=== PATIENT | female | born 1985 | race Caucasian/White ===

== ENCOUNTER → 2018-02-02 | Outpatient (CLI) | payer OTHER | END | disposition home or self-care (01) | LOC: LABWHC1 15:13 | PROVIDERS: ATTEND Obstetrics & Gynecology | DX: Z34.81 Encounter for supervision of other normal pregnancy, first trimester (principal) | CPT/HCPCS: 36415; 84702 ==

== ENCOUNTER 2018-06-12 17:30 | Emergency (ER) | payer OTHER ==
[2018-06-12 17:42] VITALS: RESP 18
[2018-06-12 18:04] LABS: Appearance,Urine Clear (Clear); Bilirubin,Urine Negative (Negative); Blood,Urine Negative (Negative); Color,Urine Yellow; Glucose,Urine (UA) Negative (Negative); Ketones,Urine Negative (Negative); Leukocyte Esterase,Urine Negative (Negative); Nitrite,Urine Negative (Negative); PH, Urine 6.5 (5.0-8.0); Protein,Urine Trace (Negative); Specific Gravity,Urine 1.026 (1.001-1.035)
[2018-06-12] MEDS ORDERED: KETOROLAC 30 MG/ML 1 ML VIAL IVP STA (18:16)
--- NOTE | 2018-06-12 19:02 | XR ---
EXAMINATION TYPE: XR chest 2V DATE OF EXAM: 06/12/2018 COMPARISON: NONE HISTORY: Fever. TECHNIQUE: Frontal and lateral views of the chest are obtained. FINDINGS: There is no focal air space opacity, pleural effusion, or pneumothorax seen. The cardiac silhouette size is within normal limits. The osseous structures are intact. Overlying bra strap not ed. IMPRESSION: No suspicious acute infiltrate.
[2018-06-12 19:23] LABS: Basophils # (A) 0.1 k/uL (0-0.2); Basophils % (A) 1 %; Eosinophils # (A) 0.2 k/uL (0-0.7); Eosinophils % (A) 2 %; HCT 46.7 % (34.0-46.0); HGB 14.6 gm/dL (11.4-16.0); Lymphocytes # (A) 3.2 k/uL (1.0-4.8); Lymphocytes % (A) 28 %; MCH 27.1 pg (25.0-35.0); MCHC 31.3 g/dL (31.0-37.0); MCV 86.4 fL (80.0-100.0); Monocytes # (A) 0.5 k/uL (0-1.0); Monocytes % (A) 4 %; Neutrophils # (A) 7.6 k/uL (1.3-7.7); Neutrophils % (A) 65 %; Platelet Count 317 k/uL (150-450); RDW 13.8 % (11.5-15.5); WBC 11.7 k/uL (3.8-10.6)
[2018-06-12 19:25] LABS: ALT 36 U/L (9-52); AST 17 U/L (14-36); Albumin 4.5 g/dL (3.5-5.0); Alkaline Phosphatase 82 U/L (38-126); Amylase 31 U/L (30-110); Anion Gap 9 mmol/L; Blood Urea Nitrogen 17 mg/dL (7-17); Calcium 10.2 mg/dL (8.4-10.2); Carbon Dioxide 25 mmol/L (22-30); Chloride 107 mmol/L (98-107); Glucose 92 mg/dL (74-99); Lipase 38 U/L (23-300); Sodium 141 mmol/L (137-145); Total Bilirubin 0.4 mg/dL (0.2-1.3); Total Protein 7.5 g/dL (6.3-8.2)
[2018-06-12 20:44] VITALS: BP 134/93; PULSE 64; TEMP 97.7
--- NOTE | 2018-06-12 20:55 | US ---
EXAMINATION TYPE: US abdomen limited DATE OF EXAM: 06/12/2018 COMPARISON: NONE CLINICAL HISTORY: Pain. RUQ pain x 3 weeks EXAM MEASUREMENTS: Liver Length: 18.7 cm Gallbladder Wall: 0.2 cm CBD: 0.5 cm Right Kidney: 11.0 x 5.5 x 4.7 cm Pancreas: Tail obscured by overlying bowel gas Liver: Increased attenuation Gallbladder: wnl Evidence for sonographic Parrish's sign: No CBD: wnl Right Kidney: wnl Visualized liver is heterogeneously hyperechoic suggesting mild diffuse fatty infiltration. IMPRESSION: No shadowing mobile gallstones or ultrasound evidence for acute cholecystitis. Suspect mi ld diffuse fatty infiltration of liver.
--- NOTE | 2018-06-12 21:22 | ED ---
General Adult HPI - General Chief complaint: Abdominal Pain Stated complaint: UTI Time Seen by Provider: 06/12/18 17:50 Source: patient, RN notes reviewed Mode of arrival: ambulatory Limitations: no limitations - History of Present Illness Initial comments: 33-year-old female presents to the emergency department for a chief complaint of right lateral lower rib pain and right upper quadrant pain. Patient states she had similar symptoms when she had a urinary tract infection quite some time ago. Patient denies any lower abdominal pain. Patient denies any dysuria. Denies fevers or chills. No nausea or vomiting. Patient states this pain has been on and off for the past week. She denies any chest pain or shortness of breath. Denies any pleuritic pain. Patient has no other complaints at this time including shortness of breath, chest pain,nausea or vomiting, headache, or visual changes. - Related Data Home Medications Medication Instructions Recorded Confirmed No Known Home Medications 06/12/18 06/12/18 Allergies Allergy/AdvReac Type Severity Reaction Status Date / Time No Known Allergies Allergy Verified 06/12/18 17:50 Review of Systems ROS Statement: Those systems with pertinent positive or pertinent negative responses have been documented in the HPI. ROS Other: All systems not noted in ROS Statement are negative. Past Medical History Past Medical History: No Reported History History of Any Multi-Drug Resistant Organisms: None Reported Past Surgical History: No Surgical Hx Reported Past Psychological History: Anxiety Smoking Status: Current every day smoker Past Alcohol Use History: Occasional Past Drug Use History: Marijuana General Exam Limitations: no limitations General appearance: alert, in no apparent distress Head exam: Present: atraumatic, normocephalic, normal inspection Eye exam: Present: normal appearance, PERRL, EOMI. Absent: scleral icterus, conjunctival injection, periorbital swelling ENT exam: Present: normal exam, mucous membranes moist Neck exam: Present: normal inspection, full ROM. Absent: tenderness, meningismus, lymphadenopathy Respiratory exam: Present: normal lung sounds bilaterally. Absent: respiratory distress, wheezes, rales, rhonchi, stridor Cardiovascular Exam: Present: regular rate, normal rhythm, normal heart sounds. Absent: systolic murmur, diastolic murmur, rubs, gallop, clicks GI/Abdominal exam: Present: soft, tenderness (Tenderness noted to the right upper quadrant, tenderness also noted to the right lower lateral ribs. no signficant tenderness noted to epigastric or left upper quadrant.), normal bowel sounds. Absent: distended, guarding (No guarding present.), rebound, rigid Back exam: Present: normal inspection. Absent: CVA tenderness (R), CVA tenderness (L), vertebral tenderness Neurological exam: Present: alert, oriented X3, CN II-XII intact Psychiatric exam: Present: normal affect, normal mood Course Vital Signs 06/12/18 06/12/18 17:38 20:42 Temperature 98.3 F 97.7 F Pulse Rate 76 64 Respiratory 18 18 Rate Blood Pressure 147/95 134/93 O2 Sat by Pulse 98 97 Oximetry Medical Decision Making - Medical Decision Making 33-year-old female presents to the emergency department for a chief complaint of right lower rib and right upper quadrant pain. Denies any lower abdominal pain or left-sided pain despite triage note. Patient states this has been going on for about a week. She states pain is intermittent. Not sure and alleviating or aggravating factors. Exam does show right upper quadrant tenderness as well as right-sided rib tenderness. No chest pain or shortness of breath.CBC and CMP are unremarkable. Amylase and lipase are within normal limits. Urine is negative. Given rib tenderness chest x-ray was ordered which showed no suspicious acute infiltrate. Ultrasound of the right upper quadrant showed no shadowing mobile gallstones or evidence for cholecystitis. There is mild diffuse fatty liver. On reevaluation of the patient she is up ambulating around the room and dressed trying to take out her IV. She states she is feeling much better and has to be to work by 945 pm. I did offer further workup of patient states she would rather follow up outpatient. She was given GI referral as well as primary care. However I did discuss to return here immediately if she has worsening symptoms. - Lab Data Result diagrams: 06/12/18 19:00 06/12/18 19:00 Lab Results 06/12/18 06/12/18 06/12/18 Range/Units 17:54 17:54 19:00 WBC (3.8-10.6) k/uL RBC (3.80-5.40) m/uL Hgb (11.4-16.0) gm/dL Hct (34.0-46.0) % MCV (80.0-100.0) fL MCH (25.0-35.0) pg MCHC (31.0-37.0) g/dL RDW (11.5-15.5) % Plt Count (150-450) k/uL Neutrophils % % Lymphocytes % % Monocytes % % Eosinophils % % Basophils % % Neutrophils # (1.3-7.7) k/uL Lymphocytes # (1.0-4.8) k/uL Monocytes # (0-1.0) k/uL Eosinophils # (0-0.7) k/uL Basophils # (0-0.2) k/uL Sodium 141 (137-145) mmol/L Potassium 4.0 (3.5-5.1) mmol/L Chloride 107 (98-107) mmol/L Carbon Dioxide 25 (22-30) mmol/L Anion Gap 9 mmol/L BUN 17 (7-17) mg/dL Creatinine 0.79 (0.52-1.04) mg/dL Est GFR (CKD-EPI)AfAm >90 (>60 ml/min/1.73 sqM) Est GFR (CKD-EPI)NonAf >90 (>60 ml/min/1.73 sqM) Glucose 92 (74-99) mg/dL Calcium 10.2 (8.4-10.2) mg/dL Total Bilirubin 0.4 (0.2-1.3) mg/dL AST 17 (14-36) U/L ALT 36 (9-52) U/L Alkaline Phosphatase 82 (38-126) U/L Total Protein 7.5 (6.3-8.2) g/dL Albumin 4.5 (3.5-5.0) g/dL Amylase 31 (30-110) U/L Lipase 38 (23-300) U/L Urine Color Yellow Urine Appearance Clear (Clear) Urine pH 6.5 (5.0-8.0) Ur Specific [place] 1.026 (1.001-1.035) Urine Protein Trace H (Negative) Urine Glucose (UA) Negative (Negative) Urine Ketones Negative (Negative) Urine Blood Negative (Negative) Urine Nitrite Negative (Negative) Urine Bilirubin Negative (Negative) Urine Urobilinogen 3.0 (<2.0) mg/dL Ur Leukocyte Esterase Negative (Negative) Urine HCG, Qual Not Detected (Not Detectd) 06/12/18 Range/Units 19:00 WBC 11.7 H (3.8-10.6) k/uL RBC 5.40 (3.80-5.40) m/uL Hgb 14.6 (11.4-16.0) gm/dL Hct 46.7 H (34.0-46.0) % MCV 86.4 (80.0-100.0) fL MCH 27.1 (25.0-35.0) pg MCHC 31.3 (31.0-37.0) g/dL RDW 13.8 (11.5-15.5) % Plt Count 317 (150-450) k/uL Neutrophils % 65 % Lymphocytes % 28 % Monocytes % 4 % Eosinophils % 2 % Basophils % 1 % Neutrophils # 7.6 (1.3-7.7) k/uL Lymphocytes # 3.2 (1.0-4.8) k/uL Monocytes # 0.5 (0-1.0) k/uL Eosinophils # 0.2 (0-0.7) k/uL Basophils # 0.1 (0-0.2) k/uL Sodium (137-145) mmol/L Potassium (3.5-5.1) mmol/L Chloride (98-107) mmol/L Carbon Dioxide (22-30) mmol/L Anion Gap mmol/L BUN (7-17) mg/dL Creatinine (0.52-1.04) mg/dL Est GFR (CKD-EPI)AfAm (>60 ml/min/1.73 sqM) Est GFR (CKD-EPI)NonAf (>60 ml/min/1.73 sqM) Glucose (74-99) mg/dL Calcium (8.4-10.2) mg/dL Total Bilirubin (0.2-1.3) mg/dL AST (14-36) U/L ALT (9-52) U/L Alkaline Phosphatase (38-126) U/L Total Protein (6.3-8.2) g/dL Albumin (3.5-5.0) g/dL Amylase (30-110) U/L Lipase (23-300) U/L Urine Color Urine Appearance (Clear) Urine pH (5.0-8.0) Ur Specific [place] (1.001-1.035) Urine Protein (Negative) Urine Glucose (UA) (Negative) Urine Ketones (Negative) Urine Blood (Negative) Urine Nitrite (Negative) Urine Bilirubin (Negative) Urine Urobilinogen (<2.0) mg/dL Ur Leukocyte Esterase (Negative) Urine HCG, Qual (Not Detectd) Disposition Clinical Impression: Abdominal pain Disposition: HOME SELF-CARE Condition: Good Instructions (If sedation given, give patient instructions): Abdominal Pain (ED ) Additional Instructions: Please follow up with primary care and GI in 1-2 days. Please return here to the emergency department if you have any worsening symptoms. Is patient prescribed a controlled substance at d/c from ED?: No Referrals: Ivelisse Kebede MD [Primary Care Provider] - 1-2 days Kanu Waterman MD [STAFF PHYSICIAN] - 1-2 days Time of Disposition: 21:21
== END 2018-06-12 21:30 | disposition home or self-care (01) ==
LOC: EC 17:30
DX: R10.11 Right upper quadrant pain (principal); K76.0 Fatty (change of) liver, not elsewhere classified; R07.81 Pleurodynia; F17.200 Nicotine dependence, unspecified, uncomplicated; Z87.440 Personal history of urinary (tract) infections
CPT/HCPCS: 36415; 80053; 82150; 83690; 85025; 81003; 81025; 71046; 76705; 99284; 96374; J1885

== ENCOUNTER 2020-06-26 16:09 | Inpatient (IN) | payer OTHER ==
[2020-06-26] MEDS ORDERED: LIDOCAINE 0.5% (PF) 5 MG/ML (50 ML SDV) SQ PRN (17:37)
[2020-06-26] MEDS ORDERED: OXYTOCIN 10 UNIT/ML 1 ML VIAL IM PRN (17:37)
[2020-06-26] MEDS ORDERED: METHYLERGONOVINE 0.2 MG/ML 1 ML AMP IM PRN (17:37)
[2020-06-26] MEDS ORDERED: TERBUTALINE 1 MG/ML VIAL SQ PRN (17:37)
[2020-06-26] MEDS ORDERED: CARBOPROST TROMETHAMINE 250 MCG/ML 1 ML AMP IM PRN (17:37)
[2020-06-26] MEDS ORDERED: AMPICILLIN 2,000 MG in SODIUM CHLORIDE 0.9% 100 ML IVPB STA (17:42)
[2020-06-26] MEDS ORDERED: OXYTOCIN 30 UNITS/500 ML NS 30 UNIT in SALINE 1 500ML.BAG IV SCH (17:45)
--- NOTE | 2020-06-26 17:52 | P.HPOB ---
History of Present Illness H&P Date: 06/26/20 Chief Complaint: IUP at 40 and 0, spontaneous rupture of membranes This is a 35-year-old at 40-0/7 weeks with an estimated due date of 06/26 E. on last menstrual period and consistent with 12 week ultrasound. Patient presents with complaints of spontaneous rupture of membranes around 11 AM this morning. Patient denies concerns of contractions or vaginal bleeding. Patient has been receiving routine care. Patient's care has been complicated by gestational hypertension for which she is on labetalol 100 mg twice daily. Patient is noted to be group beta strep positive. On bloodwork patient has a blood type of O+, rubella status is immune, RPR is nonreactive, hep Aide surface antigen is negative, HIV negative. Patient did pass her 1 hour gestational diabetes screen with a result of 112. Group beta strep culture was positive on 06/05. Review of Systems Constitutional: Denies fatigue, Denies fever Ears, nose, mouth and throat: Denies headache Cardiovascular: Reports leg edema Respiratory: Denies dyspnea Gastrointestinal: Denies nausea, Denies vomiting Genitourinary: Reports Past Medical History Past Medical History: No Reported History History of Any Multi-Drug Resistant Organisms: None Reported Past Surgical History: No Surgical Hx Reported Past Psychological History: Anxiety Past Alcohol Use History: Occasional Past Drug Use History: Marijuana Medications and Allergies Home Medications Medication Instructions Recorded Confirmed Type No Known Home Medications 06/12/18 06/12/18 History Allergies Allergy/AdvReac Type Severity Reaction Status Date / Time No Known Allergies Allergy Verified 06/12/18 17:50 Exam Osteopathic Statement: *. No significant issues noted on an osteopathic structural exam other than those noted in the History and Physical/Consult. 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 heart tones returned be category 1 and she is not chava. Assessment and Plan (1) Term Current Visit: Yes Status: Acute Code(s): Z34.90 - ENCNTR FOR SUPRVSN OF NORMAL , UNSP, UNSP TRIMESTER SNOMED Code(s): 77552597 (2) SROM (spontaneous rupture of membranes) Current Visit: Yes Status: Acute Code(s): CJA4762 - SNOMED Code(s): 642598683 (3) Positive GBS test Current Visit: Yes Status: Acute Code(s): B95.1 - STREPTOCOCCUS, GROUP B, [facility] Code(s): 850886342 Plan: This 35-year-old at 40-0/7 weeks presents to labor and delivery with complaints of spontaneous rupture of membranes around 11 AM this morning. Patient is admitted to labor and delivery and IV antibiotics are begun. Pitocin augmentation of labor will be initiated given length of time since rupture of membranes. Epidural versus Stadol are discussed and reviewed with patient.
[2020-06-26] MEDS ORDERED: BUTORPHANOL 1 MG/ML 1 ML VIAL IV PRN (18:10)
[2020-06-26] MEDS: LACTATED RINGERS 1,000 ML IV SCH ×2 (18:21→19:15)
[2020-06-26 18:48] LABS: Basophils # (A) 0.1 k/uL (0-0.2); Basophils % (A) 1 %; Eosinophils # (A) 0.2 k/uL (0-0.7); Eosinophils % (A) 1 %; HCT 38.5 % (34.0-46.0); HGB 13.2 gm/dL (11.4-16.0); Lymphocytes # (A) 2.2 k/uL (1.0-4.8); Lymphocytes % (A) 14 %; MCH 29.4 pg (25.0-35.0); MCHC 34.2 g/dL (31.0-37.0); MCV 85.8 fL (80.0-100.0); Monocytes # (A) 0.6 k/uL (0-1.0); Monocytes % (A) 4 %; Neutrophils # (A) 12.3 k/uL (1.3-7.7); Neutrophils % (A) 80 %; Platelet Count 269 k/uL (150-450); RBC 4.49 m/uL (3.80-5.40); RDW 13.5 % (11.5-15.5); WBC 15.4 k/uL (3.8-10.6)
[2020-06-26] MEDS: AMPICILLIN 1,000 MG in SODIUM CHLORIDE 0.9% 50 ML IVPB SCH (22:00)
[2020-06-27] MEDS: AMPICILLIN 1,000 MG in SODIUM CHLORIDE 0.9% 50 ML IVPB SCH ×4 (01:53→14:00)
[2020-06-27] MEDS: LACTATED RINGERS 1,000 ML IV SCH ×3 (03:36→08:11)
[2020-06-27] MEDS ORDERED: fentaNYL (PF) 50 MCG/ML 5 ML AMP ONE ×2 (04:34→12:35)
[2020-06-27] MEDS ORDERED: ROPIVACAINE 5MG/ML 20ML VIAL ONE ×2 (04:34→12:35)
[2020-06-27] MEDS ORDERED: SODIUM CHLORIDE 0.9% 100 ML BAG ONE ×2 (04:34→12:35)
[2020-06-27] MEDS ORDERED: ONDANSETRON 4 MG/2 ML VIAL IVP PRN ×2 (10:26→13:24)
[2020-06-27] MEDS ORDERED: OXYTOCIN 10 UNIT/ML 1 ML VIAL ONE (12:35)
[2020-06-27] MEDS ORDERED: MORPHINE SULFATE (PF) 0.3 MG/0.3 ML SYR ONE (12:35)
[2020-06-27] MEDS ORDERED: KETOROLAC 15 MG/ML 1 ML VIAL ONE (12:35)
[2020-06-27] MEDS ORDERED: ONDANSETRON 4 MG/2 ML VIAL ONE (12:35)
[2020-06-27] MEDS ORDERED: ceFAZolin 3 GM in SODIUM CHLORIDE 0.9% 100 ML IVPB ONE (12:42)
[2020-06-27] MEDS ORDERED: CITRIC ACID-SODIUM CITRATE 15 ML CUP PO ONE (13:00)
[2020-06-27] MEDS ORDERED: diphenhydrAMINE 50 MG/ML 1 ML VIAL IVP PRN ×3 (13:11→13:24)
[2020-06-27] MEDS ORDERED: NALOXONE 0.4 MG/ML 1 ML VIAL IV PRN (13:11)
[2020-06-27] MEDS ORDERED: MORPHINE SULFATE 2 MG/ML SYRINGE IVP PRN (13:11)
[2020-06-27] MEDS ORDERED: METOCLOPRAMIDE 5 MG/ML 2 ML VIAL IVP PRN (13:24)
[2020-06-27] MEDS ORDERED: KETOROLAC 15 MG/ML 1 ML VIAL IVP PRN (13:24)
[2020-06-27] MEDS ORDERED: diphenhydrAMINE 50 MG CAP PO PRN (13:24)
[2020-06-27] MEDS ORDERED: SIMETHICONE 80 MG CHEWABLE PO PRN (13:24)
[2020-06-27] MEDS ORDERED: diphenhydrAMINE 25 MG CAP PO PRN (13:24)
[2020-06-27] MEDS ORDERED: LANOLIN CREAM 5 GM TUBE TOPICAL PRN (13:24)
[2020-06-27] MEDS ORDERED: ZOLPIDEM 5 MG TAB PO PRN (13:24)
[2020-06-27] MEDS ORDERED: HYDROcodone/APAP 5-325MG 1 EACH TAB PO PRN (13:28)
[2020-06-27] MEDS ORDERED: OXYTOCIN 30 UNITS/500 ML NS 30 UNIT in SALINE 1 500ML.BAG IV SCH (13:30)
[2020-06-27] MEDS ORDERED: LACTATED RINGERS 1,000 ML IV SCH (13:30)
--- NOTE | 2020-06-27 13:36 | P.OP ---
Date of Procedure: 06/27/20 Preoperative Diagnosis: #1. 40-0/7 weeks, labor #2. Arrest of dilation and descent #3. Suspected malposition #4. intolerance of labor Postoperative Diagnosis: Same Procedure(s) Performed: #1. Primary low-transverse section Anesthesia: epidural Surgeon: Sriram Nogueira [employer] Vault Custodian #1: Lo Wilkins Estimated Blood Loss (ml): 500 IV fluids (ml): 800 Urine output (ml): 100 Pathology: none sent Condition: stable Disposition: floor Operative Findings: The patient had had spontaneous rupture for more than 24 hours. Antibody prophylaxis had been in place since presentation. heart tones with demonstrate repetitive late decelerations with any degree of increasing of the Pitocin. Maternal cervical exam was found to be approximately 5 cm early this morning with the station at approximately -2 station and never changed through the entire morning despite contractions though the Pitocin did have to be turned off on several occasions. Exam also indicated that the fetus was likely to be in an occiput posterior position. This was ultimately confirmed intraoperatively. As result of all of the above, the patient was counseled and taken to the operating room where she was delivered by primary low-transverse section of a viable 7 lbs. 11 oz. baby boy with Apgars of 8 at 1 minute and 9 at 5 minutes in the occiput posterior position. There was a loose nuchal cord 1. The placenta was delivered manually, intact, and grossly normal with a grossly normal three-vessel cord. Uterus, tubes, and ovaries were entirely normal to inspection. Description of Procedure: The patient was prepped and draped in usual fashion after epidural anesthesia was bolused by the anesthesiologist. A Pfannenstiel incision was made and extended into the abdominal cavity without difficulty. The bladder peritoneum was significantly distal to the intended site of incision was left intact. A 27 incision was made in the transverse plane of the lower uterine segment to enter the uterus at which time some globular meconium was noted but mostly with clear fluid. The incision was extended in both directions using the bandage scissors. The head was of not significantly deep in the pelvis and was found to be in the left occiput posterior position. The head was elevated up and through the incision where the nose and mouth were thoroughly suctioned. The remainder of the infant was delivered onto the field after reducing the loose nuchal cord. The cord was doubly clamped, cut, and the passed resuscitative measures with weight and Apgars as noted above. A segment of cord was doubly clamped, cut, and set aside should cord gases become necessary. The placenta was delivered manually and intact as noted above. The uterus was exteriorized and the interior cavity of uterus swept of any remaining placental or membranous fragments. The margins of the uterine incision were grasped with Keenan clamps and the incision closed in 2 layers. The first layer was a running locking stitch of 0 chromic catgut from margin to margin followed by a running imbricating layer of 0 chromic catgut from margin to margin. Hemostasis appeare d to be excellent. The posterior cul-de-sac was then suctioned with a guard as well as with a laparotomy sponge. The uterus was replaced within the abdominal cavity and the gutters swept of any remaining blood, fluid, or clot. The incision was reexamined and found to be hemostatic. After ensuring hemostasis, the parietal peritoneum was loosely reapproximated and layer of muscles examined and found to be hemostatic. The fascia was closed with 2 running stitches of 0 Vicryl proceeding from lateral margins to midpoint. The subcutaneous tissues were irrigated, made hemostatic with the Bovie, and reapproximated with a running stitch of 30 plain catgut. The skin was approximated with a running subcuticular stitch of 4-0 Vicryl from margin to margin followed by half-inch Steri-Strips placed with Mastisol. Estimated blood loss for the case was approximate 500 mL. There were no complications. All sponge, instrument, and needle counts were correct. The patient tolerated the procedure well and proceeded to the recovery room in stable condition. Both mother and infant are resting comfortably in recovery.
--- NOTE | 2020-06-27 14:04 | P.PN ---
Subjective Progress Note Date: 06/27/20 Principal diagnosis: Status post section, acute onset left upper extremity weakness The patient is approximately 30 minutes status post section and began complaining of left upper extremity weakness and lack of sensation. She appears to have intact neurologic of function in her other extremities and there is no evidence of any facial changes. Right side is completely unaffected. Objective - Vital Signs Vital signs: Vital Signs Temp 97.2 F L 06/27/20 13:25 Pulse 74 06/27/20 13:25 Resp 18 06/27/20 13:25 BP 97/56 06/27/20 13:25 Pulse Ox 95 06/27/20 13:25 Intake & Output 06/26/20 06/27/20 06/27/20 18:59 06:59 18:59 Weight 148.325 kg Other: # Voids 1 - Exam [place] examination demonstrates her facial expressions to be equal bilaterally with normal sensation. Her left upper extremity does demonstrate lack of sensation from the shoulder to the hand as well as generalized weakness including the inability to hold it up or 2 close her hand with any level of power. Left lower extremity has normal sensation and appears to have normal range of motion. - Labs CBC & Chem 7: 06/26/20 17:45 Labs: Abnormal Lab Results - Last 24 Hours (Table) 06/26/20 Range/Units 17:45 WBC 15.4 H (3.8-10.6) k/uL Neutrophils # 12.3 H (1.3-7.7) k/uL Assessment and Plan (1) Weakness of left upper extremity Current Visit: Yes Status: Acute Code(s): R29.898 - OT SYMPTOMS AND SIGNS INVOLVING THE MUSCULOSKELETAL SYSTEM SNOMED Code(s): 038010417 (2) S/P section Current Visit: Yes Status: Acute Code(s): Z98.891 - HISTORY OF UTERINE SCAR FROM PREVIOUS SURGERY SNOMED Code(s): 792766708 Plan: Initial thought was to call for neurology but given the occasional unavailability of neurology, discussed the case with the emergency room physician Dr. Vergara. He recommended that a "code stroke" be called to initiate acute care. The stroke team has arrived and has begun its initial evaluation. I will additionally consult sound physicians for ongoing medical management and almost certainly seek a neurology consult as it has been reported that they are available in the hospital today.
[2020-06-27 14:07] LABS: Glucose,Whole Blood 85 mg/dL (75-99)
--- NOTE | 2020-06-27 14:54 | CT ---
EXAMINATION TYPE: CODE STROKE: CT brain wo contr DATE OF EXAM: 06/27/2020 COMPARISON: 04/26/2015 INDICATION: cva, left sided weakness post DLP: 1072.3 mGycm, Automated exposure control for dose reduction was used. CONTRAST: None CT of the brain is performed utilizing 3 mm thick sections through the posterior fossa and 3 mm thick sections through the remaining calvarium. Study is performed within 24 hours of arrival to the hosp ital. No abnormal hyperdensity is present to suggest an acute intracranial hemorrhage. No mass lesion is evident. No acute infarcts are evident. Ventricles and sulci are appropriate for the patient age. Paranasal sinuses and mastoid air cells within the [id number] are clear. IMPRESSIONS: 1. Normal CT Brain 2. No acute infarct
[2020-06-27] MEDS ORDERED: ASPIRIN 325 MG TAB PO SCH (15:00)
[2020-06-27 15:25] LABS: INR 0.9 (<1.2); Partial Thromboplastin Time 22.7 sec (22.0-30.0); Prothrombin Time 9.7 sec (9.0-12.0)
[2020-06-27 15:26] LABS: ALT 14 U/L (4-34); AST 16 U/L (14-36); African American GFR (CKD) >90 (>60 ml/min/1.73 sqM); Alkaline Phosphatase 132 U/L (38-126); Anion Gap 6 mmol/L; Basophils % (A) 0 %; Blood Urea Nitrogen 11 mg/dL (7-17); Calcium 8.4 mg/dL (8.4-10.2); Carbon Dioxide 24 mmol/L (22-30); Chloride 103 mmol/L (98-107); Eosinophils # (A) 0.1 k/uL (0-0.7); Eosinophils % (A) 1 %; Glucose 90 mg/dL (74-99); HCT 34.1 % (34.0-46.0); HGB 11.3 gm/dL (11.4-16.0); Lymphocytes # (A) 1.5 k/uL (1.0-4.8); Lymphocytes % (A) 9 %; MCH 28.2 pg (25.0-35.0); MCHC 33.1 g/dL (31.0-37.0); Monocytes # (A) 0.5 k/uL (0-1.0); Monocytes % (A) 3 %; Neutrophils # (A) 14.9 k/uL (1.3-7.7); Neutrophils % (A) 87 %; Non-African American GFR(CKD) >90 (>60 ml/min/1.73 sqM); Platelet Count 228 k/uL (150-450); Potassium 4.2 mmol/L (3.5-5.1); RBC 4.01 m/uL (3.80-5.40); RDW 13.8 % (11.5-15.5); Sodium 133 mmol/L (137-145); Total Bilirubin 0.4 mg/dL (0.2-1.3); Total Protein 5.6 g/dL (6.3-8.2); WBC 17.2 k/uL (3.8-10.6)
--- NOTE | 2020-06-27 15:26 | P.CNNES ---
History of Present Illness Consult date: 06/27/20 Requesting physician: Jeanne Grace Reason for Consult: stroke code for left arm weakness History of Present Illness: This is a 35-year-old woman that is GP3 that had today on 06/27/2020 and completed at around 12:45pm but upon checking-up on the patient at around 1:25pm she was found to have left arm weakness. Stroke code was activated for left arm weakness. Per the OB team the surgery lasted for about 40 12:55 hour. She had an epidural in her lower back. Per the primary team the NIH stroke scale was 2 for arm weakness. Upon asking the team if she had any drift for her weakness they stated no so I did date NIH of a 2 I felt maybe she probably had NIH of 50 since she didn't have any drift but had the predominantly left hand weakness. Upon speaking to the patient and she stated that the she felt her upper extremity was weak with shoulder weakness and numbness. But denied any neck pain, shoulder pain any headache any nausea any vomiting any visual disturbance any difficulty getting her words out. Upon seeing the patient and her room her symptoms resolved and she feels back to baseline. Per Dr. Nogueira (heddler that performed her ) he mentioned to the patient is on labetalol for gestational hypertension. Patient denies any other medical problems besides gestational hypertension. She stated that she had that 2 previous pregnancies and she had two miscarriages. He denies any history of clots, strokes or TIAs in the past. Denies history of diabetes. She does smoke about half a pack a day for years. She denies any illicit drug use or alcohol use. Stroke team notified the primary team that she is not a tpa candidate since patient has recent surgery. CT head is reported as normal CT brain. No acute infarct. CT of the head and neck is ordered and is pending report Review of Systems Review of system: The 12 point system was reviewed and apparent positive and negative per HPI. Past Medical History Past Medical History: No Reported History History of Any Multi-Drug Resistant Organisms: None Reported Past Surgical History: No Surgical Hx Reported Past Anesthesia/Blood Transfusion Reactions: No Reported Reaction Past Psychological History: Anxiety Past Alcohol Use History: Occasional Past Drug Use History: Marijuana - Past Family History Mother Family Medical History: No Reported History Medications and Allergies Home Medications Medication Instructions Recorded Confirmed Type No Known Home Medications 06/12/18 06/12/18 History Allergies Allergy/AdvReac Type Severity Reaction Status Date / Time No Known Allergies Allergy Verified 06/12/18 17:50 Physical Examination - Vital Signs Vital Signs: Vital Signs Temp Pulse Resp BP Pulse Ox 06/27/20 13:25 97.2 F L 74 18 97/56 95 06/26/20 17:36 98.1 F 72 16 126/62 Intake and Output 06/26/20 06/27/20 06/27/20 22:59 06:59 14:59 Other: # Voids 2 1 Weight 148.325 kg GENERAL: The patient is lying in bed and is not in acute distress. CHEST: The heart rate is regular rate rhythm. No murmurs to auscultation. No carotid bruit bilaterally. LUNG: Clear to auscultation bilaterally no wheezing noted throughout. Not labored breathing. ABDOMEN/GI: Bowel sounds present in all 4 quadrants. No tenderness to palpation throughout. NEUROLOGICAL: Higher mental function: The patient is awake, alert, oriented to self, place and time. Patient is following commands. No aphasia and no neglect. Cranial nerves: The pupils are round, equal and reactive to light and acco mmodation. Visual shipman are full to confrontation throughout. Extraocular movement is intact no nystagmus is noted. Facial sensation is normal to touch throughout. The facial strength is normal throughout. Hearing is normal bilaterally to hand rub. Tongue is midline and moved [id number] without any difficulty. No dysarthria is noted. Shoulder shrug is normal bilaterally. Motor: Gait is deferred. The strength is 5 over 5 throughout uppers and at least 4+ in bilateral lower without folcality and limited because of recent surgery. Normal tone and bulk. Cerebellum: Normal finger to nose heel to mcguire bilaterally. Sensation: Sensation is normal to touch throughout. Reflexes (right/left):2+ throughout Plantars are downgoing bilaterally. Results - Laboratory Findings CBC and BMP: 06/27/20 15:02 06/27/20 15:02 Abnormal Lab Findings: Abnormal Labs 06/26/20 17:45 WBC 15.4 H Neutrophils # 12.3 H Assessment and Plan Assessment: This is a 35-year-old woman GP3 that had today on 06/27/2020 then had left upper extremity weakness (predominately hand/forearm) and numbness. It was felt she had ?NIH 2(left upper extremity. But had not drift that is why I question it). Her symptoms are resolved. Her transient left upper extremity weakness and numbness: One of the possibility is transient ischemic stroke another possibility is compression/position during the srugery causing it to feel weak. Recent delivery via and had epidural 2 prior miscarriages Tobacco use smokes half a pack a day for more than 10 years History of gestational hypertension Morbid obesity Plan: CT head is reported as normal CT brain. No acute infarct. CTA of the head and neck: It is reported as no flow limiting stenosis bilateral carotid bifurcation. Normal [place] of [place]. I ordered MRI of the brain stat I lowered the aspirin from 325 that was ordered by the primary team to 81mg. S he was currently started on 80 mg daily or secondary stroke prophylaxis. 2D echo, lipid panel are ordered and pending PT, OT and RADIOLOGY TRANSPORTER are consulted. Ordered Every 4 hours neuro checks. Ordered that continuous telemetry monitoring. Patient was counseled on tobacco cessation We'll defer the rest of the management to her heddler/primary team. The plan was discussed with the primary team as well as the patient's nurse. Thank you for the consultation. Clifton Crews MD Time with Patient: Greater than 30
--- NOTE | 2020-06-27 15:42 | CT ---
EXAMINATION TYPE: CODE STROKE: CTA head neck DATE OF EXAM: 06/27/2020 HISTORY: COMPARISON: None CT DLP: 491.5 mGycm. Automated Exposure Control for Dose Reduction was Utilized. TECHNIQUE: CTA scan of the neck is performed with IV Contrast, patient injected with 65 mL of Isovue 370, axial images are obtained, coronal and sagittal reformatted images are reviewed. Three-D recons tructed images are created on an independent workstation and reviewed. Source images are reviewed. FINDINGS: Carotid/Vascular Structures: Carotid arteries bifurcate normally into internal and external carotid a rteries. No significant narrowing is evident. 3-D reconstructed images are reviewed on the computer. Cervical of Jacobson: Vertebral basilar system appears normal. Posterior cerebral vasculature is unrema rkable. Internal carotid arteries bifurcate normally into A1 and M1 segments. A2 segments are normal. The anterior communicating artery is patent. Left Posterior communicating artery is patent. Right po sterior communicating artery is patent. IMPRESSION: 1. No flow-limiting stenosis bilateral carotid bifurcations. 2. Normal kaw of Jacobson
[2020-06-27 15:55] LABS: Creatine Kinase 77 U/L (30-135)
[2020-06-27] MEDS ORDERED: AMPICILLIN 1,000 MG in SODIUM CHLORIDE 0.9% 50 ML IVPB SCH (16:00)
[2020-06-27 16:07] LABS: Creatine Kinase MB 0.8 ng/mL (0.0-2.4); Troponin I <0.012 ng/mL (0.000-0.034)
[2020-06-27] MEDS ORDERED: LABETALOL 5 MG/ML VIAL MDV IVP PRN (17:06)
--- NOTE | 2020-06-27 17:15 | P.EN ---
Code Stroke: Indication: Left arm weakness and numbness, last known normal 1325. Background: Patient is a 35-year-old female with a history of obesity with BMI 51.2 and gestational hypertension currently taking labetalol 100 mg twice daily who initially presented with rupture of membranes. She had an epidural placed with lidocaine and fentanyl. She underwent . Upon moving to recovery from nursing noted significant left upper extremity weakness. Dr. Nogueira was notified. Code stroke was activated. Arrived to room at 1352. Patient is awake, alert, and talking. She reports left upper extremity weakness. Nursing has already performed an NIH stroke scale and given 2. Blood sugar was noted to be 85. Blood pressure was approximately 90/50. Patient seen and examined at bedside. She denies any headache, nausea, vomiting, abdominal pain, or back pain. She denies any double vision, blurry vision, loss of vision. She denies any difficulty speaking. Vital signs reviewed General: non toxic, no distress, appears at stated age Derm: warm, dry Head: atraumatic, normocephalic, symmetric Eyes: EOMI, no lid lag, anicteric sclera Mouth: no lip lesion, mucus membranes moist Cardiovascular: S1S2 reg, no murmur, positive posterior tibial pulse bilateral, Lungs: Decreased bs bilateral, no rhonchi, no rales , no accessory muscle use Neuro: Pupils equal round reactive to light, light touch intact bilateral face, no lid lag, extraocular motion intact, uvula elevation equal bilaterally, no tongue deviation Light touch intact bilateral shoulders, elbows, wrists, and hand. Light touch intact of bilateral thigh, calf, and feet. Muscle strength 5 out of 5 in bilateral lower extremities with flexion and extension at the thigh/hip/ankle Muscle strength 5 out of 5 in the right upper extremity with abduction and abduction, supination and pronation, flexion and extension at the elbow, and approximation of fingers to thumb Muscle strength 4 out of 5 in the left upper extremity with abduction and abduction, supination and pronation, flexion and extension at the elbow, Unable to resist breaking first to second finger [place], difficult maintaining finger positioning to resistence. Decreased fixture relamper strength on the left Psych: Alert, oriented, appropriate affect Assessment/Plan: 1. left upper extremity weakness - Concerns for TIA/CVA/ Hemorrhagic CVA/ Compression of cervical nerve - Stat CT head, and CTA head and neck - D/W Dr. Samuel of intervenational neuro. Not a candidate for TPA, could possibly be candidate for thrombectomy if indicated - D/W Dr. Nogueira - D/W Dr. Georgette Crews neuro hospitalist - Check stat cbc, cmp - check ekg - transfer from [facility] to for neuro checks and possible stroke care - hold labeatolol, for permissive hypertension - Monitor closely -significant other at bedside and update A Total of 32 minutes of critical care time was spent on the complex care of this patient. For recheck exam see consult note same date.
[2020-06-27] MEDS: ACETAMINOPHEN TAB 500 MG TAB PO SCH ×2 (17:42→23:19)
--- NOTE | 2020-06-27 18:00 | ECHOF ---
Referral Reason:Thrombus MEASUREMENTS -------- HEIGHT: 170.2 cm WEIGHT: 148.3 kg BP: RVIDd: 3.4 cm (< 3.3) IVSd: 1.1 cm (0.6 - 1.1) LVIDd: 4.8 cm (3.9 - 5.3) LVPWd: 1.2 cm (0.6 - 1.1) IVSs: 1.7 cm LVIDs: 3.3 cm LVPWs: 1.6 cm LA Diam: 3.4 cm (2.7 - 3.8) Ao Diam: 3.3 cm (2.0 - 3.7) AV Cusp: 2.6 cm (1.5 - 2.6) MV EXCURSION: 15.293 mm (> 18.000) MV EF SLOPE: 105 mm/s (70 - 150) EPSS: 0.8 cm MV E Smith: 1.46 m/s MV DecT: 218 ms MV A Smith: 0.78 m/s MV E/A Ratio: 1.87 RAP: 5.00 mmHg RVSP: 21.74 mmHg FINDINGS -------- Sinus rhythm. This was a technically good study. The left ventricular size is normal. There is borderline concentric left ventricular hypertrophy. Overall left ventricular systolic function is normal with, an EF between 60 - 65 %. The right ventricle is mildly enlarged. The left atrium is normal in size. The right atrium is normal in size. Interatrial and interventricular septum intact. The aortic valve is trileaflet and appears structurally normal. Mild mitral regurgitation is present. Mild tricuspid regurgitation present. Right ventricular systolic pressure is normal at < 35 mmHg. The aortic root size is normal. Normal inferior vena cava with normal inspiratory collapse consistent with estimated right atrial pre ssure of 5 mmHg. There is no pericardial effusion. CONCLUSIONS -------- 1. The left ventricular size is normal. 2. There is borderline concentric left ventricular hypertrophy. 3. Overall left ventricular systolic function is normal with, an EF between 60 - 65 %. 4. The right ventricle is mildly enlarged. 5. Mild mitral regurgitation is present. 6. Mild tricuspid regurgitation present. 7. There is no pericardial effusion. STRAPPER AND BUFFER: Adore Mack RDCS
--- NOTE | 2020-06-27 18:03 | P.CONS ---
<Juan Luis Chavez - Last Filed: 06/27/20 16:40> History of Present Illness - Reason for Consult Consult date: 06/27/20 New-onset left upper extremity numbness and weakness - History of Present Illness Hospital course: Patient is a 35-year-old female with a past medical history of gestational hypertension and is a G3 T1 L1 status post section completed by Dr. Nogueira with successful delivery of healthy full-term son ([place]). Per Dr. Nogueira, section was free from complications and completed with minimal blood loss estimated at approximately 500 mL . Per report, patient was resting comfortably in recovery and approximately 30 minutes post section around 1:25 pm patient reportedly began complaining of experiencing numbness and weakness to her left upper extremity. Patient was assessed by Dr. Nogueira and a stroke code was called. Construction Estimator and Dr. Grace arrived to bedside at 1:52 p.m. and found patient to be lying semi-Leandro's in bed. She was awake, alert, and oriented to person, place, time, and situation. GCS 15. Pupils equal and round. Speech clear. Patient reported that she was experiencing weakness and numbness in her left upper extremity. Dr. Grace com pleted NIH stroke neuro assessment. Initial NIH score of 2. Patient was found to have weakness of her left upper extremity general engineer strength as well as with abduction, adduction, supination and pronation of LUE. Blood sugar was 85. Vital signs assessed and stable with a blood pressure 110/61, heart rate 74, respiratory rate 16, and O2 sat of 100% on room air. Pt immediately taken for CT of brain without contrast which was negative for acute intracranial process. CTA head and neck then performed again negative for acute process reporting no flow-limiting stenosis of bilateral carotid bifurcations and normal [place] of Jacobson. [facility] was notified and Dr. Grace discussed findings with Dr. Samuel-Interventional Radiologist whom reported that pt is not a candidate for TPA secondary to receiving epidural and postsurgical status. Upon return from CT patient transferred to neuro stepdown unit. Upon my reevaluation of patient, again found patient to be awake, alert, and oriented to person, place, time, and situation. She reports feeling much better, stating that numbness and weakness of her left arm has resided, although she reported that she continues to have some numbness and tingling in her left breast. She denied having any other complaints including headache, lightheadedness, dizziness, changes in her vision or hearing, tinnitus, memory loss, difficulties finding words or with her speech, numbness of her face or tongue, dysphasia, chest pain or palpitations, shortness of breath, nausea, or any other complaints at this time. Pupils remained equal, round, and reactive and EOMs intact. Face symmetrical and speech was clear. CN II-XII intact. Upper and lower extremities with full range of motion. Sensation intact. [id number] normal findings. Negative arm drift. Pronation and Supination intact. Strength equal and strong...5 out of 5 upper extremities and 5 out of 5 to lower extremities. Normal [id number]. Plantar flexion and dorsiflexion intact. Negative Babinski. Bedside swallow evaluation completed, patient passed showing no difficulties swallowing liquids or solid substances. Neurologist-Dr. Crews at bedside to assess. Echocardiogram and EKG to be completed. Patient scheduled for MRI at 4:15 p.m. Review of systems: Pertinent positives and negatives as discussed in HPI, a complete review of sys tems was performed and all other systems are negative. Physical exam: General: non toxic, no distress, appears at stated age Derm: warm, dry Head: atraumatic, normocephalic, symmetric Eyes: EOMI, no lid lag, anicteric sclera Mouth: no lip lesion, mucus membranes moist Cardiovascular: S1S2 reg, no murmur, positive posterior tibial pulse bilateral, Lungs: CTA bilateral, no rhonchi, no rales , no accessory muscle use Abdominal: Status post section, surgical dressing in place. Fundus being monitored by obstetric team. Ext: no gross muscle atrophy, no edema, no contractures Neuro: GCS 15. Speech clear. CN II-XII grossly intact, no focal neuro deficits at time of reevaluation. Psych: Alert, oriented, appropriate affect Assessment and Plan of Care: New-onset Left upper extremity numbness and weakness -Patient transferred to neuro stepdown unit for continuous close medical management. -CT of brain without contrast was negative for acute intracranial process. -CTA head and neck then performed again negative for acute process reporting no flow-limiting stenosis of bilateral carotid bifurcations and normal [place] of [place]. -MRI scheduled for 4:15 PM. -Allow for permissive hypertension, hold daily home medication regimen of lab etalol 100 mg twice daily. PRN order was placed for labetalol 20 mg IVP as needed for hypertensive emergency with systolic pressure greater than 220 and/or diastolic pressure greater than 120. -Telemetry monitoring -Echocardiogram -EKG -Continue NIH stroke assessment with neuro checks every 4 hours. -Patient placed on daily aspirin and atorvastatin. -Neurology following appreciate further recommendations. Gestational hypertension -Allowing for permissive hypertension, hold daily home medication regimen of labetalol 100 mg twice daily. PRN order was placed for labetalol 20 mg IVP as needed for hypertensive emergency with systolic pressure greater than 220 and/or diastolic pressure greater than 120. Day 0 status post section -Continued management per obstetrics team. CODE STATUS: Full code DVT prophylaxis: SCDs Discussed with: Patient and RN Anticipated discharge date: Clinical course to determine Anticipated discharge place: Home A total of 50 minutes was spent on the care of this complex patient more than 50% of the time was spent in counseling and care coordination. Past Medical History Past Medical History: No Reported History History of Any Multi-Drug Resistant Organisms: None Reported Past Surgical History: No Surgical Hx Reported Past Anesthesia/Blood Transfusion Reactions: No Reported Reaction Past Psychological History: Anxiety Past Alcohol Use History: Occasional Past Drug Use History: Marijuana - Past Family History Mother Family Medical History: No Reported History Medications and Allergies Home Medications Medication Instructions Recorded Confirmed Type No Known Home Medications 06/12/18 06/12/18 History Allergies Allergy/AdvReac Type Severity Reaction Status Date / Time No Known Allergies Allergy Verified 06/12/18 17:50 Physical Exam Vitals: Vital Signs Temp Pulse Resp BP Pulse Ox 06/27/20 13:55 77 16 114/63 100 06/27/20 13:53 74 110/61 100 06/27/20 13:40 97.2 F L 67 18 93/57 99 06/27/20 13:25 97.2 F L 74 18 97/56 95 06/26/20 17:36 98.1 F 72 16 126/62 Intake and Output 06/27/20 06/27/20 06/27/20 06:59 14:59 22:59 Other: # Voids 1 Results CBC & Chem 7: 06/27/20 15:02 06/27/20 15:02 Labs: Abnormal Lab Results - Last 24 Hours (Table) 06/26/20 06/27/20 06/27/20 Range/Units 17:45 15:02 15:02 WBC 15.4 H 17.2 H (3.8-10.6) k/uL Hgb 11.3 L (11.4-16.0) gm/dL Neutrophils # 12.3 H 14.9 H (1.3-7.7) k/uL Sodium 133 L (137-145) mmol/L Alkaline Phosphatase 132 H (38-126) U/L Total Protein 5.6 L (6.3-8.2) g/dL Albumin 3.0 L (3.5-5.0) g/dL <Jeanne Grace - Last Filed: 06/27/20 18:26> Physical Exam Osteopathic Statement: *. No significant issues noted on an osteopathic structural exam other than those noted in the History and Physical/Consult. Vitals: Vital Signs Temp Pulse Resp BP Pulse Ox 06/27/20 15:48 97.4 F L 72 16 110/74 97 06/27/20 15:43 96 06/27/20 14:32 16 06/27/20 13:55 77 16 114/63 100 06/27/20 13:53 74 110/61 100 06/27/20 13:40 97.2 F L 67 18 93/57 99 06/27/20 13:25 97.2 F L 74 18 97/56 95 Intake and Output 06/27/20 06/27/20 06/27/20 06:59 14:59 22:59 Other: # Voids 1 2 Results CBC & Chem 7: 06/27/20 15:02 06/27/20 15:02 Labs: Abnormal Lab Results - Last 24 Hours (Table) 06/26/20 06/27/20 06/27/20 Range/Units 17:45 15:02 15:02 WBC 15.4 H 17.2 H (3.8-10.6) k/uL Hgb 11.3 L (11.4-16.0) gm/dL Neutrophils # 12.3 H 14.9 H (1.3-7.7) k/uL Sodium 133 L (137-145) mmol/L Alkaline Phosphatase 132 H (38-126) U/L Total Protein 5.6 L (6.3-8.2) g/dL Albumin 3.0 L (3.5-5.0) g/dL Assessment and Plan Assessment: Patient seen and examined independently. Patient was also seen by Juan Luis Chavez NP and case was discussed. I am in agreement with subjective, physical exam, assessment and plan as written above and amended below. Feeling better, arm numbess and weakness has resolved, no breast numbness Repeat Focused exam: Neuro: Pupils equal round reactive to light, light touch intact bilateral face, no lid lag, extraocular motion intact, uvula elevation equal bilaterally, no tongue deviation Light touch intact bilateral shoulders, elbows, wrists, and hand. Muscle strength 5 out of 5 in the right and left upper extremity with abduction and abduction, supination and pronation, flexion and extension at the elbow, and approximation of fingers to thumb Hat Block Maker strength equal bilateral No pronator drift FInger equal bilateral Patient unabel to tolerate MRI. Will continue to monitor.
[2020-06-27 20:10] LABS: Glucose,Whole Blood 95 mg/dL (75-99)
[2020-06-27] MEDS ORDERED: ATORVASTATIN 80 MG TAB PO SCH (21:00)
[2020-06-27] MEDS: SENNOSIDES-DOCUSATE SODIUM 1 EACH TAB PO SCH (21:36)
[2020-06-27] MEDS: FAMOTIDINE 20 MG TAB PO SCH (21:36)
[2020-06-27] MEDS: ACETAMINOPHEN TAB 325 MG TAB PO PRN (21:41)
[2020-06-27] MEDS: IBUPROFEN 600 MG TAB PO SCH (23:17)
[2020-06-28] MEDS: IBUPROFEN 600 MG TAB PO SCH ×4 (03:15→22:22)
[2020-06-28 06:29] LABS: Glucose,Whole Blood 91 mg/dL (75-99)
[2020-06-28] MEDS: ACETAMINOPHEN TAB 500 MG TAB PO SCH ×3 (06:30→19:44)
[2020-06-28 07:30] LABS: Basophils % (A) 0 %; Eosinophils # (A) 0.3 k/uL (0-0.7); Eosinophils % (A) 2 %; HGB 11.6 gm/dL (11.4-16.0); Lymphocytes # (A) 2.6 k/uL (1.0-4.8); Lymphocytes % (A) 21 %; MCH 29.3 pg (25.0-35.0); MCHC 34.1 g/dL (31.0-37.0); MCV 85.9 fL (80.0-100.0); Mean Platelet Volume 8.7; Monocytes # (A) 0.4 k/uL (0-1.0); Monocytes % (A) 3 %; Neutrophils % (A) 73 %; Platelet Count 216 k/uL (150-450); RBC 3.95 m/uL (3.80-5.40); RDW 13.4 % (11.5-15.5); WBC 12.5 k/uL (3.8-10.6)
[2020-06-28 07:48] LABS: Cholesterol 186 mg/dL (<200); HDL Cholesterol 42 mg/dL (40-60); LDL Cholesterol,Calculated 94 mg/dL (0-99); Triglycerides 250 mg/dL (<150)
[2020-06-28] MEDS: FAMOTIDINE 20 MG TAB PO SCH ×2 (09:30→21:26)
[2020-06-28] MEDS: ASPIRIN 81 MG PO SCH (09:30)
[2020-06-28] MEDS: SENNOSIDES-DOCUSATE SODIUM 1 EACH TAB PO SCH ×2 (09:31→19:44)
--- NOTE | 2020-06-28 09:36 | P.PN ---
Subjective Progress Note Date: 06/28/20 Patient was seen at bedside and she stated that the her weakness has resolved and she continues to be neurologically stable and has not had any further worsening of her weakness. Denies any new neurological events. I will was notified by the primary team as well as the nursing staff that yesterday when the patient was having a her left arm was not in the position where he supposed to be and was hanging down during the procedure. Yesterday a STAT MRI was ordered but was notified by patient and nursing staff today she did not get it since felt anxious and did not want to pursue with it. Objective - Vital Signs Vital signs: Vital Signs Temp 98.6 F 06/27/20 20:00 Pulse 65 06/28/20 03:43 Resp 16 06/28/20 03:43 BP 120/65 06/28/20 03:43 Pulse Ox 95 06/28/20 03:43 Intake & Output 06/27/20 06/28/20 06/28/20 18:59 06:59 18:59 Output Total 600 Balance -600 Weight 146.8 kg Output: Urine 600 Uretheral ([place]) 600 Other: Voiding Method Indwelling Catheter # Voids 2 1 - Exam GENERAL: The patient is lying in bed and is not in acute distress. NEUROLOGICAL: Higher mental function: The patient is awake, alert, oriented to self, place and time. Patient is following commands. No aphasia and no neglect. Cranial nerves: The pupils are round, equal and reactive to light and accommodation. Visual shipman are full to confrontation throughout. Extraocular movement is intact no nystagmus is noted. Facial sensation is normal to touch throughout. The facial strength is normal throughout. Hearing is normal b ilaterally to hand rub. Tongue is midline and moved [id number] without any difficulty. No dysarthria is noted. Shoulder shrug is normal bilaterally. Motor: Gait is deferred. The strength is 5 over 5 throughout uppers and at least 4+ in bilateral lower without folcality and limited because of recent surgery. Normal tone and bulk. Cerebellum: Normal finger to nose heel to mcguire bilaterally. Sensation: Sensation is normal to touch throughout. Reflexes (right/left):2+ throughout Plantars are downgoing bilaterally. - Labs CBC & Chem 7: 06/28/20 07:18 06/27/20 15:02 Labs: Abnormal Lab Results - Last 24 Hours (Table) 06/27/20 06/27/20 06/28/20 Range/Units 15:02 15:02 07:18 WBC 17.2 H 12.5 H (3.8-10.6) k/uL Hgb 11.3 L (11.4-16.0) gm/dL Neutrophils # 14.9 H 9.0 H (1.3-7.7) k/uL Sodium 133 L (137-145) mmol/L Alkaline Phosphatase 132 H (38-126) U/L Total Protein 5.6 L (6.3-8.2) g/dL Albumin 3.0 L (3.5-5.0) g/dL Triglycerides (<150) mg/dL 06/28/20 Range/Units 07:18 WBC (3.8-10.6) k/uL Hgb (11.4-16.0) gm/dL Neutrophils # (1.3-7.7) k/uL Sodium (137-145) mmol/L Alkaline Phosphatase (38-126) U/L Total Protein (6.3-8.2) g/dL Albumin (3.5-5.0) g/dL Triglycerides 250 H (<150) mg/dL Assessment and Plan Assessment: This is a 35-year-old woman GP3 that had today on 06/27/2020 then had left upper extremity weakness (predominately hand/forearm) and numbness. It was felt she had ?NIH 2(left upper extremity. But had not drift that is why I question it). Her symptoms are resolved. Transient left upper extremity weakness and numbness: is likely compression/position during the surgery leading to transient brachial plexopathy/multiple compression neuropathy. Cannot exclude transient ischemic attack (TIA) especially because of during there is increase risk of stroke and two prior miscarriage. Recent delivery via and had epidural 2 prior miscarriages Tobacco use smokes half a pack a day for more than 10 years History of gestational hypertension Morbid obesity Plan: CT head is reported as normal CT brain. No acute infarct. CTA of the head and neck: It is reported as no flow limiting stenosis bilateral carotid bifurcation. Normal [place]. Could not tolerate MRI. Lipid panel: Triglyceride is 250, cholesterol is 186, LDL is 94, HDL is 42. Strokes a goal LDL is less than 70. 2-D echo was reported as left ventricular size is normal. Borderline concentric left ventricular hypertrophy. Ejection fraction of 60-65%. Left atrium is normal in size. Continue aspirin 81mg daily. Recommend Lipitor 20mg daily instead of 80mg daily for secondary stroke prophylaxis. PT, OT and LUMBER PILER OPERATOR are consulted. Continue Q4 hour neuro checks. Continue continuous telemetry monitoring. She cannot breast-feed 2 days from the the contrast. Patient was counseled on tobacco cessation We'll defer the rest of the management to her machine umbrella tipper/primary team. Sensation is to follow up with a neurologist within 2 weeks upon discharge. She is clear to call back to the OB floor. There is no further workup needed at this time. The plan was discussed with the patient's primary team and her nurse. Clifton Crews MD Time with Patient: Less than 30
--- NOTE | 2020-06-28 09:49 | P.PN ---
Progress Note - Text Date: 06/28/2020 Time: 07:52 The patient is status post section Vital signs stable VAS: 0-10 Patient has no complaints of pain. The patient incurred some minimal itching yesterday, this itching is now subsiding. It was also noted that the patient had some left upper extremity weakness and numbness yesterday, which was address ed by medicine and neurology. The patient has no complaints of left upper extremity weakness or numbness today. Pain meds to be managed by service.
--- NOTE | 2020-06-28 11:40 | P.PN ---
<Juan Luis Chavez - Last Filed: 06/28/20 11:19> Subjective Progress Note Date: 06/28/20 Hospital course: Patient is a 35-year-old female with a past medical history of gestational hyp ertension and is a G3 T1 L1 status post section completed by Dr. Nogueira on 06/27/20 with successful delivery of healthy full-term infant son ([place]). Per Dr. Nogueira, section was free from complications and completed with minimal blood loss estimated at approximately 500 mL . Per report, patient was resting comfortably in recovery and approximately 30 minutes post section around 1:25 pm patient reportedly began complaining of experiencing numbness and weakness to her left upper extremity. Patient was assessed by Dr. Nogueira and a stroke code was called. Initial NIH stoke score of 2 secondary to weakness of her left upper extremity fabrication supervisor strength as well as with abduction, adduction, supination and pronation of LUE. Blood sugar and vital signs were stable. Patient was taken for CT of brain without contrast which was negative for acute intracranial process. CTA head and neck then performed again negative for acute process reporting no flow-limiting stenosis of bilateral carotid bifurcations and normal [place]. Upon reevaluation of patient, the weakness and numbness of patient's left upper extremity had resolved and fabrication supervisor strength returned to normal. Echocardiogram was completed revealing a normal left ventricular systolic function with an EF of 60-65%. Patient was scheduled to have MRI completed, but reportedly became very anxious and declined further testing or medication at that time. Labs normal findings with no significant abnormalities. Lipid profile did reveal an elevated triglyceride level of 250. Patient reports today that she does recall letting her left arm fall off of table during her yesterday, but stated initially it felt fine/better that way and it wasn't until after the section when she went to hold her baby that she realized it was then numb and weak. Patient continues to report complete resolution of numbness/tingling/weakness. She denies having any other complaints including headache, lightheadedness, dizziness, changes in vision or hearing, chest pain, palpitations, shortness of breath, or dyspnea with exertion. Patient does report mild postsurgical pain in which she reports is currently controlled. Physical exam: General: non toxic, no distress, appears at stated age Derm: warm, dry Head: atraumatic, normocephalic, symmetric Eyes: EOMI, no lid lag, anicteric sclera Mouth: no lip lesion, mucus membranes moist Cardiovascular: S1S2 reg, no murmur, positive posterior tibial pulse bilateral, Lungs: CTA bilateral, no rhonchi, no rales , no accessory muscle use Abdominal: Status post section, surgical dressing and abdominal binder in place. Ext: no gross muscle atrophy, no edema, no contractures Neuro: GCS 15. Speech clear. CN II-XII grossly intact, no focal neuro deficits noted. Psych: Alert, oriented, appropriate affect Assessment and Plan of Care: New-onset Left upper extremity numbness and weakness, resolved -Numbness and weakness of left upper extremity was likely secondary to pts positional placement of her arm reported throughout the section resulting in period of compression of brachial plexus, less likely secondary to TIA but cannot be fully ruled out. -Patient cleared by neurology and to be transferred back to mother baby unit for continued close monitoring of post surgical/ assessments. -CT of brain without contrast was negative for acute intracranial process. -CTA head and neck then performed again negative for acute process reporting no flow-limiting stenosis of bilateral carotid bifurcations and normal [place]. -Echocardiogram showing a normal left ventricular systolic function with an EF of 60-65%. -Continue daily aspirin 81 mg. -Continue daily atorvastatin 20 mg nightly. Had long discussion with patient regarding benefits of starting statin secondary to inability to rule out TIA. Patient was instructed that she cannot breast-feed while taking a statin medication. Patient verbalized she wanted to begin this medication and would not be breast-feeding her son. Gestational hypertension -Continued management per obstetrics team. Blood pressure has been controlled throughout hospitalization at this time. Suggest possible discontinuation of labetalol. Day 1 status post section -Continued management per obstetrics team. DVT prophylaxis: SCDs Discussed with: Patient and RN Anticipated discharge: 1-[address]: Home A total of 45 minutes was spent on the care of this complex patient more than 50% of the time was spent in counseling and care coordination. Objective - Vital Signs Vital signs: Vital Signs Temp 98.6 F 06/27/20 20:00 Pulse 65 06/28/20 03:43 Resp 16 06/28/20 03:43 BP 120/65 06/28/20 03:43 Pulse Ox 95 06/28/20 03:43 Intake & Output 06/27/20 06/28/20 06/28/20 18:59 06:59 18:59 Output Total 600 Balance -600 Weight 146.8 kg Output: Urine 600 Uretheral ([place]) 600 Other: Voiding Method Indwelling Catheter # Voids 2 1 - Labs CBC & Chem 7: 06/28/20 07:18 06/27/20 15:02 Labs: Abnormal Lab Results - Last 24 Hours (Table) 06/27/20 06/27/20 06/28/20 Range/Units 15:02 15:02 07:18 WBC 17.2 H 12.5 H (3.8-10.6) k/uL Hgb 11.3 L (11.4-16.0) gm/dL Neutrophils # 14.9 H 9.0 H (1.3-7.7) k/uL Sodium 133 L (137-145) mmol/L Alkaline Phosphatase 132 H (38-126) U/L Total Protein 5.6 L (6.3-8.2) g/dL Albumin 3.0 L (3.5-5.0) g/dL Triglycerides (<150) mg/dL 06/28/20 Range/Units 07:18 WBC (3.8-10.6) k/uL Hgb (11.4-16.0) gm/dL Neutrophils # (1.3-7.7) k/uL Sodium (137-145) mmol/L Alkaline Phosphatase (38-126) U/L Total Protein (6.3-8.2) g/dL Albumin (3.5-5.0) g/dL Triglycerides 250 H (<150) mg/dL <Jeanne Grace A - Last Filed: 06/28/20 17:22> Objective - Vital Signs Vital signs: Vital Signs Temp 97.5 F L 06/28/20 16:00 Pulse 78 06/28/20 16:00 Resp 14 06/28/20 16:00 BP 127/84 06/28/20 16:00 Pulse Ox 97 06/28/20 09:25 Intake & Output 06/27/20 06/28/20 06/28/20 18:59 06:59 18:59 Output Total 600 Balance -600 Weight 146.8 kg Output: Urine 600 Uretheral ([place]) 600 Other: Voiding Method Indwelling Catheter Toilet # Voids 2 1 2 - Labs CBC & Chem 7: 06/28/20 07:18 06/27/20 15:02 Labs: Abnormal Lab Results - Last 24 Hours (Table) 06/28/20 06/28/20 Range/Units 07:18 07:18 WBC 12.5 H (3.8-10.6) k/uL Neutrophils # 9.0 H (1.3-7.7) k/uL Triglycerides 250 H (<150) mg/dL Assessment and Plan Assessment: Patient seen and examined independently. Patient was also seen by Juan Luis Chavez NP and case was discussed. I am in agreement with subjective, physical exam, assessment and plan as written above and amended below. Patient reports all symptoms resolved. She is feeling well and wants to go back to the mother-baby unit. She feels as though preventing a recurrence of her left upper extremity weakness or stroke outweighs the benefits of breast- feeding. She is agreeable to aspirin and statin. General: non toxic, no distress, appears at stated age Derm: warm, dry Head: atraumatic, normocephalic, symmetric Cardiovascular: S1S2 reg, no murmur, positive posterior tibial pulse bilateral, Lungs: CTA bilateral, no rhonchi, no rales , no accessory muscle use Ext: no gross muscle atrophy, no edema, no contractures Neuro: Muscle strength 5 out of 5 in the right and left upper extremity with abduction and abduction, supination and pronation, flexion and extension at the elbow, and approximation of fingers to thumb Gas Turbine Assembler strength equal bilateral No pronator drift
--- NOTE | 2020-06-28 12:07 | P.PNOBGPC ---
Subjective - Subjective Interval history: The patient has had complete resolution of her left upper extremity weakness. The symptoms resolved shortly after transfer to medical service yesterday and all workup has been negative. Patient reports: Reports appetite normal, Reports voiding normally, Reports pain well controlled, Reports ambulating normally [place]: doing well Objective - Vital Signs Latest vital signs: Vital Signs Temp Pulse Resp BP Pulse Ox 06/28/20 09:25 98.5 F 68 16 108/56 97 06/28/20 03:43 65 16 120/65 95 06/28/20 01:31 68 18 06/27/20 23:42 68 18 106/57 98 06/27/20 20:00 98.6 F 79 20 124/88 97 06/27/20 15:48 97.4 F L 72 16 110/74 97 06/27/20 15:45 72 16 06/27/20 15:43 96 06/27/20 14:32 16 06/27/20 13:55 77 16 114/63 100 06/27/20 13:53 74 110/61 100 06/27/20 13:40 97.2 F L 67 18 93/57 99 06/27/20 13:25 97.2 F L 74 18 97/56 95 Intake and Output 06/27/20 06/28/20 06/28/20 22:59 06:59 14:59 Output Total 600 Balance -600 Output: Urine 600 Uretheral ([place]) 600 Other: Voiding Method Indwelling Catheter Indwelling Catheter Toilet # Voids 2 1 1 Weight 146.8 kg - Exam Extremities: Present: normal Abdomen: Present: normal appearance, soft. Absent: distention, tenderness Incision: Present: normal, dry, intact Uterus: Present: normal, firm (The uterine fundus is tonic and appropriately tender at the umbilicus.) - Labs Labs: Abnormal Lab Results - Last 24 Hours (Table) 06/27/20 06/27/20 06/28/20 Range/Units 15:02 15:02 07:18 WBC 17.2 H 12.5 H (3.8-10.6) k/uL Hgb 11.3 L (11.4-16.0) gm/dL Neutrophils # 14.9 H 9.0 H (1.3-7.7) k/uL Sodium 133 L (137-145) mmol/L Alkaline Phosphatase 132 H (38-126) U/L Total Protein 5.6 L (6.3-8.2) g/dL Albumin 3.0 L (3.5-5.0) g/dL Triglycerides (<150) mg/dL 06/28/20 Range/Units 07:18 WBC (3.8-10.6) k/uL Hgb (11.4-16.0) gm/dL Neutrophils # (1.3-7.7) k/uL Sodium (137-145) mmol/L Alkaline Phosphatase (38-126) U/L Total Protein (6.3-8.2) g/dL Albumin (3.5-5.0) g/dL Triglycerides 250 H (<150) mg/dL Assessment and Plan (1) Weakness of left upper extremity Current Visit: Yes Status: Acute Code(s): R29.898 - [facility] SYMPTOMS AND SIGNS INVOLVING THE MUSCULOSKELETAL SYSTEM SNOMED Code(s): 322040967 (2) S/P section Current Visit: Yes Status: Acute Code(s): Z98.891 - HISTORY OF UTERINE SCAR FROM PREVIOUS SURGERY SNOMED Code(s): 741692526 Plan: The patient has been transferred back from the medical service after complete clearance from both internal medicine and neurology. She will continue to have routine and postoperative care. Assuming no complications, she will likely be discharged home tomorrow. I strongly encouraged her to ambulate in the hallways routinely.
[2020-06-28] MEDS: ACETAMINOPHEN TAB 325 MG TAB PO PRN (13:23)
[2020-06-28 13:26] LABS: Hemoglobin A1C 5.3 % (4.0-6.0)
[2020-06-28] MEDS ORDERED: ATORVASTATIN 40 MG TAB PO SCH (21:00)
[2020-06-28] MEDS ORDERED: ATORVASTATIN 20 MG TAB PO SCH (21:00)
[2020-06-29] MEDS: ACETAMINOPHEN TAB 500 MG TAB PO SCH ×3 (01:45→12:02)
[2020-06-29] MEDS: HYDROcodone/APAP 5-325MG 1 EACH TAB PO PRN ×2 (01:53→08:28)
[2020-06-29] MEDS: IBUPROFEN 600 MG TAB PO SCH ×2 (06:27→09:12)
[2020-06-29] MEDS: SENNOSIDES-DOCUSATE SODIUM 1 EACH TAB PO SCH (08:27)
[2020-06-29] MEDS: FAMOTIDINE 20 MG TAB PO SCH (10:05)
[2020-06-29] MEDS: ASPIRIN 81 MG PO SCH (10:05)
[2020-06-29 10:32] VITALS: BP 140/74; PULSE 75; RESP 14; TEMP 98
--- NOTE | 2020-06-29 10:50 | P.PN ---
<Juan Luis Chavez - Last Filed: 06/29/20 10:08> Subjective Progress Note Date: 06/29/20 Hospital course: Patient is a 35-year-old female with a past medical history of gestational hyp ertension and is a G3 T1 L1 status post section completed by Dr. Nogueira on 06/27/20 with successful delivery of healthy full-term son ([place]). While in recovery, approximately 30 minutes post section patient reportedly began complaining of experiencing numbness and weakness to her left upper extremity. Patient was assessed by Dr. Nogueira and a stroke code was called. Initial NIH stoke score of 2 secondary to weakness of her left upper extremity physician office nurse strength as well as with abduction, adduction, supination and pronation of LUE. Blood sugar and vital signs were stable. Patient was taken for CT of brain without contrast which was negative for acute intracranial process. CTA head and neck then performed again negative for acute process reporting no flow-limiting stenosis of bilateral carotid bifurcations and normal [place]. The numbness and weakness pt was experiencing in her left upper extremity resolved spontaneously after approximately 1 hour returning patient to her baseline sensation, strength and movement. Echocardiogram revealing a normal left ventricular systolic function with an EF of 60-65%. Patient was scheduled to have MRI completed, but reportedly became very anxious and declined further testing or medication at that time. Labs normal findings with no significant abnormalities. Lipid profile did reveal an elevated t riglyceride level of 250 otherwise normal findings. Hemoglobin A1c was 5.3. Patient reported that she did recall letting her left arm fall off of table during her , but stated initially it felt fine/better that way and it wasn't until after the section when she went to hold her baby that she realized it was then numb and weak. Patient currently continues to report complete resolution of numbness/tingling/weakness. Numbness and weakness of left upper extremity is believed to be secondary to pts positional placement of her arm reported throughout the section resulting in period of compression of brachial plexus, and less likely secondary to TIA, however a TIA cannot be fully ruled out as and period places patient at higher risk for events such as these. Patient was seen and fully evaluated by neurologist, Dr. Crews whom recommended patient to continue low-dose aspirin and low-dose atorvastatin daily and follow up outpatient with neurologist in 4 weeks. I had a long discussion with Ms. Rosenberg regarding the benefits of starting a s tatin medication secondary to the inability to completely rule out a TIA. Patient was instructed that if we start her on this medication, she will not be able to breast-feed as there is a possible risk of drug excretion into the breast milk. Patient verbalized understanding of the benefits and risks of taking vs not taking this medication and stated she wanted to begin this medication and would not be breast-feeding her son. Patient has been cleared by neurology and is currently medically stable for discharge home, pending clearance from Dr. Nogueira MINUTE CLERK. Physical exam: Patient was seen and fully evaluated at the bedside this morning. She was sitting up in her bed and expressed that both she and her son are doing well. Patient denies having any further episodes of numbness, weakness, tingling, or any other complaints. She continues to deny having any headaches, lightheadedness, dizziness, changes in vision or hearing, tinnitus, changes in her difficulties with speech, dysphasia, chest pain, palpitations, or shortness of breath. Vital signs reviewed and remain stable. General: non toxic, no distress, appears at stated age Derm: warm, dry Head: atraumatic, normocephalic, symmetric Eyes: EOMI, no lid lag, anicteric sclera Mouth: no lip lesion, mucus membranes moist Cardiovascular: S1S2 reg, no murmur, positive posterior tibial pulse bilateral, Lungs: CTA bilateral, no rhonchi, no rales , no accessory muscle use Abdominal: Status post section, surgical dressing and abdominal binder in place. Ext: no gross muscle atrophy, no edema, no contractures Neuro: GCS 15. Speech clear. CN II-XII grossly intact, no focal neuro deficits noted. Psych: Alert, oriented, appropriate affect Assessment and Plan of Care: New-onset Left upper extremity numbness and weakness, resolved -Numbness and weakness of left upper extremity was likely secondary to pts positional placement of her arm reported throughout the section resulting in period of compression of brachial plexus, less likely secondary to TIA but cannot be fully ruled out. -CT of brain without contrast was negative for acute intracranial process. -CTA head and neck then performed again negative for acute process reporting no flow-limiting stenosis of bilateral carotid bifurcations and normal [place]. -Echocardiogram showing a normal left ventricular systolic function with an EF of 60-65%. -Hemoglobin A1c 5.3. Lipid profile normal findings with the exception of chai vated triglycerides at 250. -Continue daily aspirin 81 mg. -Continue daily atorvastatin 20 mg nightly. Cannot breast-feed while taking atorvastatin, patient verbalized understanding. -Heart healthy diet Gestational hypertension -Continued management per obstetrics team. Blood pressure has been controlled throughout hospitalization at this time. Suggest possible discontinuation of labetalol. Day 2 status post section -Continued management per obstetrics team. Thank you for allowing us to participate in the care of this pleasant patient. Do not hesitate to contact us with questions. Someone can be reached from the [facility] hospitalist group all hours of the day at [phone] or via [employer]. Objective - Vital Signs Vital signs: Vital Signs Temp 97.9 F 06/29/20 08:00 Pulse 140 H 06/29/20 08:00 Resp 56 H 06/29/20 08:00 BP 108/56 06/29/20 04:00 Pulse Ox 95 06/29/20 04:00 Intake & Output 06/28/20 06/29/20 06/29/20 18:59 06:59 18:59 Other: Voiding Method Toilet # Voids 2 1 2 # Bowel Movements 1 - Labs CBC & Chem 7: 06/28/20 07:18 06/27/20 15:02 <Jeanne Grace - Last Filed: 06/29/20 15:06> Objective - Vital Signs Vital signs: Vital Signs Temp 98.0 F 06/29/20 08:00 Pulse 75 06/29/20 08:00 Resp 14 06/29/20 08:00 BP 140/74 06/29/20 08:00 Pulse Ox 95 06/29/20 04:00 Intake & Output 06/28/20 06/29/20 06/29/20 18:59 06:59 18:59 Other: Voiding Method Toilet # Voids 2 1 2 # Bowel Movements 1 - Labs CBC & Chem 7: 06/28/20 07:18 06/27/20 15:02 Assessment and Plan Assessment: I discussed the care with Juan Luis Chavez NP and reviewed the findings and plan as documented in the note above. I did not staff this patient on this date.
--- NOTE | 2020-06-29 11:02 | P.PN ---
Subjective Progress Note Date: 06/29/20 Upon seeing the patient emphasized she continues to do well. She denies of any and you focal weakness, numbness, neck pain, visual disturbance. She feels back to baseline. Objective - Vital Signs Vital signs: Vital Signs Temp 98.0 F 06/29/20 08:00 Pulse 75 06/29/20 08:00 Resp 14 06/29/20 08:00 BP 140/74 06/29/20 08:00 Pulse Ox 95 06/29/20 04:00 Intake & Output 06/28/20 06/29/20 06/29/20 18:59 06:59 18:59 Other: Voiding Method Toilet # Voids 2 1 2 # Bowel Movements 1 - Exam GENERAL: The patient is lying in bed and is not in acute distress. NEUROLOGICAL: Higher mental function: The patient is awake, alert, oriented to self, place and time. Patient is following commands. No aphasia and no neglect. Cranial nerves: The pupils are round, equal and reactive to light and accommodation. Visual shipman are full to confrontation throughout. Extraocular movement is intact no nystagmus is noted. Facial sensation is normal to touch throughout. The facial strength is normal throughout. Hearing is normal bilaterally to hand rub. Tongue is midline and moved [id number] without any difficulty. No dysarthria is noted. Shoulder shrug is normal bilaterally. Motor: Gait is deferred. The strength is 5 over 5 throughout. Normal tone and bulk. Cerebellum: Normal finger to nose heel to mcguire bilaterally. Sensation: Sensation is normal to touch throughout. Reflexes (right/left):2+ throughout Plantars are downgoing bilaterally. - Labs CBC & Chem 7: 06/28/20 07:18 06/27/20 15:02 Assessment and Plan Assessment: This is a 35-year-old woman GP3 that had today on 06/27/2020 then had left upper extremity weakness (predominately hand/forearm) and numbness. It was felt she had ?NIH 2(left upper extremity. But had not drift that is why I question it). Her symptoms are resolved. Transient left upper extremity weakness and numbness: is likely compression/position during the surgery leading to transient brachial plexopathy/multiple compression neuropathy. Cannot exclude transient ischemic attack (TIA) especially because of during there is increase risk of stroke and two prior miscarriage. Recent delivery via and had epidural 2 prior miscarriages Tobacco use smokes half a pack a day for more than 10 years History of gestational hypertension Morbid obesity Plan: CT head is reported as normal CT brain. No acute infarct. CTA of the head and neck: It is reported as no flow limiting stenosis bilateral carotid bifurcation. Normal [place]. Could not tolerate MRI. Lipid panel: Triglyceride is 250, cholesterol is 186, LDL is 94, HDL is 42. Strokes a goal LDL is less than 70. 2-D echo was reported as left ventricular size is normal. Borderline concentric left ventricular hypertrophy. Ejection fraction of 60-65%. Left atrium is normal in size. Continue aspirin 81mg daily. Recommend Lipitor 20mg daily instead of 80mg daily for secondary stroke prophylaxis. I notified the patient that she should be on aspirin 81 mg and Lipitor 20 mg for at least 30 days and after that for my opinion I will think she can discontinue since likely this was not a TIA and was most likely due to compression from surgery/position causing brachial plexopathy. I notified her that she needs to follow-up with a neurologist as an outpatient and and to defer whether to continue on antiplatelets and statin. PT, OT and OCCUPATIONAL MEDICINE OFFICER are consulted. Continue Q4 hour neuro checks. Continue continuous telemetry monitoring. 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 Sensation is to follow up with a neurologist within 2 weeks upon discharge. There is no further workup needed at this time. Patient is clear from neurology: Perspective The plan was discussed with the patient's primary team. Clifton Crews MD Time with Patient: Less than 30
--- NOTE | 2020-06-29 11:26 | P.DS ---
Providers Date of admission: 06/26/20 16:54 Expected date of discharge: 06/29/20 Attending physician: Jeanne Grace DO Consults: 06/27/20 14:04 Consult Physician Stat Consulting Provider: Jeanne Grace Consult Reason/Comments: Left upper extremity weakness, possible stroke Do you want consulting provider notified?: Already Contacted 06/27/20 14:28 Consult Physician Routine Consulting Provider: Clifton Crews Consult Reason/Comments: stroke Do you want consulting provider notified?: Already Contacted 06/27/20 14:29 Consult Physician Routine Consulting Provider: Sriram Nogueira Consult Reason/Comments: Do you want consulting provider notified?: Already Contacted Primary care physician: Stated None - Discharge Diagnosis(es) (1) Weakness of left upper extremity Current Visit: Yes Status: Acute (2) S/P section Current Visit: Yes Status: Acute Hospital Course: The patient is a 35-year-old 3 para 0020 admitted at 40-0/7 weeks by good dating parameters. She is admitted with documented spontaneous rupture of membranes and all signs reassuring. Her has been essentially uncomplicated though she did have gestational hypertension for which she had been on labetalol 100 mg twice daily. She also has morbid obesity. She additionally was known to be group B strep positive. On labor and delivery, she had antibody prophylaxis started. As labor did not ensue on its own, she had Pitocin augmentation started in a nonaggressive fashion and made some progress through the night to approximately 5 cm of dilation. Over the course of the next 6 hours and with aggressive Pitocin augmentation, the patient made no significant progress with no descent below -1-2 station. She occasionally had heart tones requiring interruption of Pitocin augmentation. She was thought to have an occiput posterior presentation. Given all of these findings, the discussion was undertaken regarding section to which the patient agreed. She was taken the operating room where she was delivered of a viable 7 lbs. 11 oz. baby boy with Apgars of 8 at 1 minute and 9 at 5 minutes. The patient's postoperative and courses were complicated by sudden onset of left upper extremity weakness noted immediately in the postoperative phase went back in her room. As there were no other focal signs but the concern for stroke was high, a code stroke was called and the medical team brought to evaluate the patient. She was ultimately transferred to the care of internal medicine for 24 hours during which time she underwent multiple scans including CT scans and laboratory evaluation. Neurology was additionally consulted. There were no focal findings consistent with the possibility of a stroke though a TIA could not be excluded. Ultimately, the most likely problem was a brachial plexus nerve compression which resolved spontaneously approximately 30 minutes after transfer of the patient from labor and delivery to [facility]. As she remained stable over the next 24 hours, she was transferred back to labor and delivery with no ongoing symptoms or residual findings. She was ultimately deemed stable for discharge on post operative day #2 and was discharged home to follow-up in the office in 2 weeks for an incision check and 6 weeks time routinely. Follow- up from a medical perspective has been made by the internal medicine team. Discharge instructions included calling for any significantly increased bleeding or foul-smelling lochia, significantly increased fever or abdominal pain, perineal complaints, breast complaints, incisional complaints, or anything else that concerned her. She was additionally instructed to have nothing in the vagina for at least 6 weeks time to include intercourse and to abstain from any heavy lifting over the same period of time. She was last instructed to do no driving until off of all pain medications or 2 weeks' time, whichever came first. She understood all of her instructions and agrees to follow up as noted above. Discharge medications included medications as outlined by the team from internal medicine. I have instructed her to use [id number] analgesic pain medications as well as continued vitamins though she has opted not to breast-feed at this time secondary to being placed on Lipitor and its concerns for nursing. She was additionally provided with a prescription for Edwards 5/325 mg, 1-2 by mouth every 6 hours when necessary pain, #20 dispensed with no refills. Maternal blood type is O+ and rubella status is immune. Discharge hemoglobin and hematocrit were 11.6 and 34.0 respectively. Procedures: #1. Antibody prophylaxis #2. Pitocin augmentation #3. Epidural analgesia #4. Primary low-transverse section #5. Internal medicine and neurology c onsultation #6. CT of the head and neck with contrast including angiography Patient Condition at Discharge: Stable Plan - Discharge Summary New Discharge Prescriptions: New Atorvastatin Calcium [Lipitor] 20 mg PO DAILY 30 Days #30 tab Aspirin 81 mg PO DAILY 30 Days #30 chewable Discharge Medication List Aspirin 81 mg PO DAILY 30 Days #30 chewable 06/28/20 [Rx] Atorvastatin Calcium [Lipitor] 20 mg PO DAILY 30 Days #30 tab 06/28/20 [Rx] Follow up Appointment(s)/Referral(s): Dania Martinez MD [REFERRING] - 4 Weeks Willie Hopkins [STAFF PHYSICIAN] - 1 Week (Establish with this PCP or another recommended by calling the number on the back of your insurance card for cont inued skilled nursing management and post-hospitalization follow up.) Sriram Nogueira MD [STAFF PHYSICIAN] - 2 Weeks Activity/Diet/Wound Care/Special Instructions: Activity: Diet: Heart healthy diet Wound Care: Special Instructions: Please follow up outpatient with neurologist as well as your PCP as directed. You are being started on atorvastatin and a low dose aspirin daily. You will need to have your lipid profile redrawn in 6 months. As we discussed, because you are being placed on atorvastatin, you cannot breastfeed while taking this medication. Discharge Disposition: HOME SELF-CARE
== END 2020-06-29 12:04 | disposition home or self-care (01) | DRG 787 ==
LOC: FBPOP 16:09 → 4FBP 16:54 → 3SCARD 06-27 14:36 → 4FBP 06-28 10:33
PROVIDERS: ADMIT Internal Medicine; ATTEND Internal Medicine
PROC: 10D00Z1 Extraction of Products of Conception, Low, Open Approach (ICD-10-PCS; principal; 2020-06-27 12:49)
PROC: 3E0D7GC Introduction of Other Therapeutic Substance into Mouth and Pharynx, Via Natural or Artificial Opening (ICD-10-PCS; principal; 2020-06-27 12:49)
PROC: 3E033VJ Introduction of Other Hormone into Peripheral Vein, Percutaneous Approach (ICD-10-PCS; principal; 2020-06-27 12:49)
PROC: 00HU33Z Insertion of Infusion Device into Spinal Canal, Percutaneous Approach (ICD-10-PCS; principal; 2020-06-27 12:49)
PROC: 3E0R3NZ Introduction of Analgesics, Hypnotics, Sedatives into Spinal Canal, Percutaneous Approach (ICD-10-PCS; principal; 2020-06-27 12:49)
DX: O13.4 Gestational [pregnancy-induced] hypertension without significant proteinuria, complicating childbirth (principal); O99.354 Diseases of the nervous system complicating childbirth; G45.9 Transient cerebral ischemic attack, unspecified; Z68.43 Body mass index [BMI] 50.0-59.9, adult; O62.1 Secondary uterine inertia; O69.81X0 Labor and delivery complicated by cord around neck, without compression, not applicable or unspecified; O76 Abnormality in fetal heart rate and rhythm complicating labor and delivery; O99.214 Obesity complicating childbirth; O99.334 Smoking (tobacco) complicating childbirth; O99.344 Other mental disorders complicating childbirth; O32.8XX0 Maternal care for other malpresentation of fetus, not applicable or unspecified; O99.42 Diseases of the circulatory system complicating childbirth; O99.824 Streptococcus B carrier state complicating childbirth; R29.702 NIHSS score 2; G54.0 Brachial plexus disorders; F41.9 Anxiety disorder, unspecified; F17.210 Nicotine dependence, cigarettes, uncomplicated; E66.01 Morbid (severe) obesity due to excess calories; Z37.0 Single live birth; Z3A.40 40 weeks gestation of pregnancy
CPT/HCPCS: 70450; 70496; 70498; 80053; 80061; 82550; 82553; 83036; 84484; 85025; 85610; 85730; 86850; 86900; 86901; 93306; 94760